=== PATIENT | male | born 1955 | race Caucasian/White ===

== ENCOUNTER 2021-01-27 12:42 | Emergency (ER) | payer MEDICARE ==
[~2021-01-27] VITALS: Ht 193 cm; Wt 95.3 kg
[~2021-01-27 12:42] MED LIST: ASP81TEC PO; ASPI-1238 PO; CLN.1T PO; CYAN10007 PO; DIGO0.25 PO; DIGO250T PO; DILT-27 PO; DILT300C PO; DOCU100T7 PO; DOXY-233 PO; ESCI-2 PO; FOLI1TAB33 PO; FURO20TA4 PO; HYDR-3454 PO; HYDR50TA76 PO; IBUP-2185 PO; INSU100I14 SQ; INSU100I5 SQ; LORA-404 PO; MAGN400T8 PO; METF-380 PO; METF-397 PO; MTP100TCR PO; MULT-1136 PO; OLAN10TA3 PO; PRV20T PO; QTP200T PO; RANI150T66 PO; RIVA20TA PO; THIA100T80 PO; TR1C15 TP; TRZ50T PO; WRF5T PO
--- NOTE | 2021-01-27 13:11 | Diagnostic Imaging Report ---
EXAMINATION: Portable erect AP chest at 1:02 p.m. INDICATION: Chest pain. The heart is mildly enlarged and the heart does seem somewhat more prominent than noted on the prior exam of 11/29/2020. However there is still no evidence for failure, pneumonia or for a significant pleural effusion. The mediastinum is not widened. The osseous structures are intact. IMPRESSION: There is mild cardiomegaly but there is no evidence for active disease. Dictated by: Dictated on workstation # [id number]
[2021-01-27] MEDS ORDERED: LORazepam INJ 2 MG/ML (ATIVAN) VIAL ONE (13:12)
[2021-01-27] MEDS ORDERED: LORazepam INJ 2 MG/ML (ATIVAN) VIAL IVP ONE ×2 (13:15→14:30)
[2021-01-27 13:26] LABS: BASOPHILS # (AUTO) 0.1 10^3/uL (0.0-0.1); BASOPHILS % (AUTO) 1 % (0-10); EOSINOPHILS # (AUTO) 0.1 10^3/uL (0.0-0.3); EOSINOPHILS % (AUTO) 1 % (0-10); HEMATOCRIT 38 % (40-54); HEMOGLOBIN 13.5 g/dL (13.3-17.7); LYMPHOCYTES # (AUTO) 0.9 10^3/uL (1.0-4.0); LYMPHOCYTES % (AUTO) 11 % (12-44); MEAN CORPUSCULAR HEMOGLOBIN 32 pg (25-34); MEAN CORPUSCULAR HGB CONC 35 g/dL (32-36); MEAN CORPUSCULAR VOLUME 90 fL (80-99); MEAN PLATELET VOLUME 9.3 fL (9.0-12.2); MONOCYTES # (AUTO) 0.6 10^3/uL (0.0-1.0); MONOCYTES % (AUTO) 7 % (0-12); NEUTROPHILS # (AUTO) 6.6 10^3/uL (1.8-7.8); NEUTROPHILS % (AUTO) 80 % (42-75); PLATELET COUNT 179 10^3/uL (130-400); WHITE BLOOD COUNT 8.2 10^3/uL (4.3-11.0)
[2021-01-27 13:27] LABS: ALBUMIN 4.5 GM/DL (3.2-4.5)
[2021-01-27 13:28] LABS: CHLORIDE 95 MMOL/L (98-107); POTASSIUM 4.7 MMOL/L (3.6-5.0); SODIUM 130 MMOL/L (135-145)
[2021-01-27 13:29] LABS: CALCIUM 9.5 MG/DL (8.5-10.1)
[2021-01-27 13:30] LABS: GLUCOSE 151 MG/DL (70-105); TOTAL PROTEIN 7.9 GM/DL (6.4-8.2)
[2021-01-27 13:31] LABS: CARBON DIOXIDE 19 MMOL/L (21-32)
[2021-01-27 13:32] LABS: BILIRUBIN,TOTAL 1.2 MG/DL (0.1-1.0)
[2021-01-27 13:34] LABS: ALKALINE PHOSPHATASE 48 U/L (40-136); CREATININE SERUM 1.02 MG/DL (0.60-1.30); GFR ESTIMATED > 60
[2021-01-27 13:35] LABS: BUN/CREATININE RATIO 8
[2021-01-27 13:37] LABS: ALANINE AMINOTRANSFERASE 20 U/L (0-55)
[2021-01-27] MEDS ORDERED: RT-ALBUTEROL INHALER HFA (VENTOLIN HFA) 18 GM IH ONE (14:26)
[2021-01-27] MEDS ORDERED: LORA-404 PO (15:01)
--- NOTE | 2021-01-27 15:01 | ED General ---
General Chief Complaint: Cardiac/General Problems Stated Complaint: ELEV BP/SOB Nursing Triage Note: PT ARRIVED BY PRIVATE VEHICLE WITH CHIEF COMPLAINT OF HYPERTENSION AND SOB. PT WAS ALERT, ORIENTED X 4 AND AMBULATORY. PT AMBULATED TO ROOM 9. PT STATED BP WAS CHECKED 3 HOURS AGO AND WAS ELEVATED. HE TAKES BP MEDICATION AND TOOK IT, AND IT DID NOT HELP. SOB STARTED LAST NIGHT. PT DENIES COUGH. PT HAS HAD BOTH MODERNA COVID VACCINES. IV WAS STARTED WITH BLOOD DRAW, COVID SWAB, VITAL SIGNS HEART MONITOR AND EKG. REPORT GIVEN TO PROVIDER. Source of Information: Patient Exam Limitations: No Limitations History of Present Illness Date Seen by Provider: Jan 27, 2021 Time Seen by Provider: 12:54 Initial Comments This 66-year-old gentleman presents to the emergency room with complaints of shortness of breath and hypertension. He is accustomed to drinking a daily but has not had any alcohol today. He does not have known respiratory problems but he appears to have decreased air movement and prolonged expiratory phase. He denies any fever. He has been vaccinated for COVID-19. He has poor eye contact and appears a bit anxious. He has upper extremity tremors. He has history of A. fib and is anticoagulated. Allergies and Home Medications Allergies Coded Allergies: No Known Drug Allergies (Unverified , 04/20/12) Home Medications Aspirin 81 Mg Tablet.dr, 81 MG PO DAILY Prescribed by: CAIO BOLDEN on 12/01/20 1211 Clonidine HCl 0.1 Mg Tablet, 0.1 MG PO HS PRN for SLEEP Prescribed by: CAIO BOLDEN on 12/01/20 1211 Diltiazem HCl 120 Mg Cap.er.24h, 120 MG PO DAILY LAST FILLED 07-15-2020 #90 Prescribed by: CAIO BOLDEN on 12/01/20 1211 Escitalopram Oxalate 10 Mg Tablet, 20 MG PO HS TAKES 2 (10MG) TABS Prescribed by: CAIO BOLDEN on 12/01/20 1211 Folic Acid 1 Mg Tablet, 1 MG PO DAILY Prescribed by: CAIO BOLDEN on 12/01/20 1211 Furosemide 20 Mg Tablet, 20 MG PO DAILY PRN for FLUID RETENTION Prescribed by: CAIO BOLDEN on 12/01/20 1211 Hydroxyzine HCl 50 Mg Tablet, 50 MG PO BID PRN for ANXIETY Prescribed by: CAIO BOLDEN on 12/01/20 1211 Ibuprofen 200 Mg Capsule, 400 MG PO Q8H PRN for PAIN-MILD (1-4), (Reported) Lorazepam 0.5 Mg Tablet, 0.5 MG PO TID PRN for ANXIETY Prescribed by: CAIO BOLDEN on 12/01/20 1211 Lorazepam 0.5 Mg Tablet, 0.5 MG PO TID PRN for AGITATION For withdrawal symptoms Prescribed by: JOSE IBARRA on 01/27/21 1501 Magnesium Oxide 400 Mg Tablet, 400 MG PO BID Prescribed by: CAIO BOLDEN on 12/01/20 1211 Metformin HCl 500 Mg Tablet, 500 MG PO BID LAST FILLED 08-12-2020 #180/90 DAY SUPPLY Prescribed by: CAIO BOLDEN on 12/01/20 1211 Metoprolol Succinate 100 Mg Tab.er.24h, 100 MG PO DAILY LAST FILLED 07-15-2020 #90/90 DAY SUPPLY Prescribed by: CAIO BOLDEN on 12/01/20 1211 Multivitamin 1 Each Tablet, 1 EACH PO DAILY Prescribed by: CAIO BOLDEN on 12/01/20 1211 Olanzapine 10 Mg Tablet, 10 MG PO HS Prescribed by: CAIO BOLDEN on 12/01/20 1211 Rivaroxaban 20 Mg Tablet, 20 MG PO DAILY 340 B Program Prescribed by: EMILE SMITH on 12/01/20 0816 Thiamine HCl 100 Mg Tablet, 100 MG PO DAILY@0700 Prescribed by: CAIO BOLDEN on 12/01/20 1211 Trazodone HCl 50 Mg Tablet, 50 MG PO HS Prescribed by: CAIO BOLDEN on 12/01/20 1211 Triamcinolone Acet 15 Gm Cr, 15 GM TP BID Prescribed by: CAIO BOLDEN on 12/01/20 1215 Patient Home Medication List Home Medication List Reviewed: Yes Review of Systems Review of Systems Constitutional: no symptoms reported EENTM: no symptoms reported Respiratory: see HPI Cardiovascular: see HPI Gastrointestinal: no symptoms reported Genitourinary: no symptoms reported Musculoskeletal: no symptoms reported Skin: no symptoms reported Psychiatric/Neurological: See HPI Hematologic/Lymphatic: No Symptoms Reported Immunological/Allergic: no symptoms reported Past Suwtywa-Wlhduv-Qcumls Hx Patient Social History Tobacco Use?: No Use of E-Cig and/or Vaping dev: No Substance use?: No Alcohol Use?: Yes Alcohol type: Beer Alcohol Frequency: Daily Pt feels they are or have been: No Past Medical History Surgeries: Yes Gallbladder Respiratory: No Cardiac: Yes (History CHF) Atrial Fibrillation, Hypertension Neurological: No Reproductive Disorders: No Genitourinary: No Gastrointestinal: No Musculoskeletal: No Endocrine: Yes Diabetes, Non-Insulin dep HEENT: No Cancer: No Did You Recieve Any Treatments: No Psychosocial: Yes Anxiety, Bipolar, Depression Integumentary: No Physical Exam Vital Signs Vital Signs - First Documented 01/27/21 12:50 Temp 37.2 Pulse 82 Resp 12 B/P (MAP) 182/136 (151) Pulse Ox 97 O2 Delivery Room Air Capillary Refill : Less Than 3 Seconds Height, Weight, BMI Height: '" Weight: lbs. oz. 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 Norm as Tested, Other (Upper extremity tremors, poor eye contact, perhaps mildly anxious) Skin: Normal Color, Warm/Dry Progress/Results/Core Measures Suspected Sepsis SIRS Temperature: Pulse: 82 Respiratory Rate: 12 Laboratory Tests 01/27/21 13:00: White Blood Count 8.2 Blood Pressure 182 /136 Mean: 151 Laboratory Tests 01/27/21 13:00: Creatinine 1.02, Platelet Count 179, Total Bilirubin 1.2H Results/Orders Lab Results Laboratory Tests Test 01/27/21 13:00 Range/Units White Blood Count 8.2 4.3-11.0 10^3/uL Red Blood Count 4.27 L 4.30-5.52 10^6/uL Hemoglobin 13.5 13.3-17.7 g/dL Hematocrit 38 L 40-54 % Mean Corpuscular Volume 90 80-99 fL Mean Corpuscular Hemoglobin 32 25-34 pg Mean Corpuscular Hemoglobin Concent 35 32-36 g/dL Red Cell Distribution Width 12.6 10.0-14.5 % Platelet Count 179 130-400 10^3/uL Mean Platelet Volume 9.3 9.0-12.2 fL Immature Granulocyte % (Auto) 1 % Neutrophils (%) (Auto) 80 H 42-75 % Lymphocytes (%) (Auto) 11 L 12-44 % Monocytes (%) (Auto) 7 0-12 % Eosinophils (%) (Auto) 1 0-10 % Basophils (%) (Auto) 1 0-10 % Neutrophils # (Auto) 6.6 1.8-7.8 10^3/uL Lymphocytes # (Auto) 0.9 L 1.0-4.0 10^3/uL Monocytes # (Auto) 0.6 0.0-1.0 10^3/uL Eosinophils # (Auto) 0.1 0.0-0.3 10^3/uL Basophils # (Auto) 0.1 0.0-0.1 10^3/uL Immature Granulocyte # (Auto) 0.1 0.0-0.1 10^3/uL Sodium Level 130 L 135-145 MMOL/L Potassium Level 4.7 3.6-5.0 MMOL/L Chloride Level 95 L 98-107 MMOL/L Carbon Dioxide Level 19 L 21-32 MMOL/L Anion Gap 16 H 5-14 MMOL/L Blood Urea Nitrogen 8 7-18 MG/DL Creatinine 1.02 0.60-1.30 MG/DL Estimat Glomerular Filtration Rate > 60 BUN/Creatinine Ratio 8 Glucose Level 151 H 70-105 MG/DL Calcium Level 9.5 8.5-10.1 MG/DL Corrected Calcium 9.1 8.5-10.1 MG/DL Total Bilirubin 1.2 H 0.1-1.0 MG/DL Aspartate Amino Transf (AST/SGOT) 36 H 5-34 U/L Alanine Aminotransferase (ALT/SGPT) 20 0-55 U/L Alkaline Phosphatase 48 40-136 U/L Troponin I < 0.028 <0.028 NG/ML C-Reactive Protein High Sensitivity 0.43 0.00-0.50 MG/DL B-Type Natriuretic Peptide 472.1 H <100.0 PG/ML Total Protein 7.9 6.4-8.2 GM/DL Albumin 4.5 3.2-4.5 GM/DL Influenza Type A (RT-PCR) Not Detected Not Detecte Influenza Type B (RT-PCR) Not Detected Not Detecte SARS-CoV-2 RNA (RT-PCR) Not Detected Not Detecte My Orders Orders - JOSE ORELLANA MD Lorazepam Injection (Ativan Injection) (01/27/21 13:15) Lorazepam Injection (Ativan Injection) (01/27/21 13:12) BNP (01/27/21 13:13) Cbc With Automated Diff (01/27/21 13:13) Comprehensive Metabolic Panel (01/27/21 13:13) Hs C Reactive Protein (01/27/21 13:13) Troponin I (01/27/21 13:13) Ed Iv/Invasive Line Start (01/27/21 13:13) Ekg Tracing (01/27/21 13:13) Monitor-Rhythm Ecg Trace Only (01/27/21 13:13) Covid 19 Inhouse Test (01/27/21 13:13) Influenza A And B By Pcr (01/27/21 13:13) Albuterol Inhaler (Ventolin Hfa) (01/27/21 18:00) Lorazepam Injection (Ativan Injection) (01/27/21 14:30) Albuterol Inhaler (Ventolin Hfa) (01/27/21 14:26) Medications Given in ED Vital Signs/I&O 01/27/21 01/27/21 12:50 15:23 Temp 37.2 Pulse 82 90 Resp 12 16 B/P (MAP) 182/136 (151) 158/113 Pulse Ox 97 97 O2 Delivery Room Air Room Air Capillary Refill : Less Than 3 Seconds Blood Pressure Mean: 151 Progress Note : Progress Note Work-up revealed no pathology that required immediate intervention. Symptoms improved with Ativan and inhaler. He does not intend to resume drinking alcohol when he returns home. A small quantity of Ativan was therefore prescribed to h elp him with withdrawal symptoms. See discharge instructions. ECG Initial ECG Impression Date: Jan 27, 2021 Initial ECG Impression Time: 13:13 Initial ECG Rate: 87 Initial ECG Rhythm: A Fib/Flutter Initial ECG Impression: Atrial Fibrillation w/RVR Comment Atrial fibrillation with no diagnostic ST elevation or depression. Rate controlled. No abnormal intervals. Diagnostic Imaging Diagonstic Imaging: Xray Plain Films/CT/US/NM/MRI: chest Comments NAME: JOCE MADSEN [facility] REC#: [id number] PT STATUS: REG ER : 1955 PHYSICIAN: MAGGIE AGUILAR APRN ADMIT DATE: 01/27/21/ER Signed Date of Exam:01/27/21 CHEST 1 VIEW, AP/PA ONLY EXAMINATION: Portable erect AP chest at 1:02 p.m. INDICATION: Chest pain. The heart is mildly enlarged and the heart does seem somewhat more prominent than noted on the prior exam of 11/29/2020. However there is still no evidence for failure, pneumonia or for a significant pleural effusion. The mediastinum is not widened. The osseous structures are intact. IMPRESSION: There is mild cardiomegaly but there is no evidence for active disease. Dictated by: Dictated on workstation # [id number] Dict: 01/27/21 1307 Trans: 01/27/21 1323 [facility] [id number] Interpreted by: JUNO RAO MD Electronically signed by: JUNO RAO MD 01/27/21 1323 Departure Impression Primary Impression: Alcohol withdrawal Qualified Codes: F10.239 - Alcohol dependence with withdrawal, unspecified Additional Impression: Bronchoconstriction Disposition: 01 HOME, SELF-CARE Condition: Improved Departure-Patient Inst. Decision time for Depature: 14:58 Referrals: NUSRAT NAVARRO MD (PCP/Family) Primary Care Physician Patient Instructions: Alcohol Withdrawal, BRONCHOSPASM-ADULT Add. Discharge Instructions: Do not abruptly stop alcohol consumption as this may cause life-threatening withdrawal symptoms or seizures. Either taper off of alcohol slowly or control symptoms with a medication such as Ativan (lorazepam). Use your inhaler up to 2 puffs every 4 hours as needed for wheezing or shortness of breath. Avoid inhaled irritants such as cigar smoke. Follow-up with your primary care provider soon as possible. Return to the emergency room if you have worsening symptoms. Call with questions or concerns. All discharge instructions reviewed with patient and/or family. Voiced understanding. Scripts Lorazepam (Ativan) 0.5 Mg Tablet 0.5 MG PO TID PRN for AGITATION, #10 TAB For withdrawal symptoms Prov: JOSE ORELLANA MD 01/27/21 Copy Copies To 1: NUSRAT NAVARRO MD, JOSHUA T MD Jan 27, 2021 15:01
[2021-01-27 15:23] VITALS: BP 158/113
[2021-01-27] MEDS ORDERED: RT-ALBUTEROL INHALER HFA (VENTOLIN HFA) 18 GM IH SCH (18:00)
== END 2021-01-27 15:23 | disposition home or self-care (01) ==
LOC: EDUNIT# 12:42 → ER 12:43
DX: F10.239 Alcohol dependence with withdrawal, unspecified (principal); J98.09 Other diseases of bronchus, not elsewhere classified; I11.0 Hypertensive heart disease with heart failure; I50.9 Heart failure, unspecified; I48.91 Unspecified atrial fibrillation; F41.9 Anxiety disorder, unspecified; E11.9 Type 2 diabetes mellitus without complications; F31.9 Bipolar disorder, unspecified; Z20.822 Contact with and (suspected) exposure to COVID-19; Z79.01 Long term (current) use of anticoagulants; Z79.82 Long term (current) use of aspirin; Z79.84 Long term (current) use of oral hypoglycemic drugs; Z79.899 Other long term (current) drug therapy
CPT/HCPCS: 36415; 71045; 80053; 83880; 84484; 85025; 86141; 87636; 93005; 93041

== ENCOUNTER 2021-04-05 23:13 | Emergency (ER) | payer MEDICARE ==
[~2021-04-05] VITALS: Ht 193 cm; Wt 99.0 kg
--- NOTE | 2021-04-05 23:45 | ED Fall/Injury ---
General Chief Complaint: Trauma EMS/Air Arrival Activat Stated Complaint: FALL,HEAD LAC Nursing Triage Note: Pt arrival to ER via EMS after fall at home. Pt states that he stood up after waiting too long after taking his medication and got dizzy. Pt states that he knelt to his knees then fell to the side striking right side of head on floor. Pt denies loss of consciousness. PT states that he gets dizzy sometimes after waiting too long after taking night time meds. Pt states that he takes xarelto for his Atrial Fib. Pt denies other complaints. Pain at a 1/10. Pt is alert and oriented x4. Source: patient Exam Limitations: no limitations History of Present Illness Date Seen by Provider: Apr 05, 2021 Time Seen by Provider: 23:21 Initial Comments Patient presents ER by EMS from home with chief complaint that he had a fall after standing up and going to the bathroom. She has gets dizzy sometimes after taking his medications for atrial fibrillation. He is on Xarelto. Dr. Hazel is his PCP. No nausea vomiting diarrhea. Small head lack to the right side of his head. It is hemostatic by time EMS arrived. Allergies and Home Medications Allergies Coded Allergies: No Known Drug Allergies (Unverified , 04/20/12) Patient Home Medication List Home Medication List Reviewed: Yes Aspirin (Aspirin EC) 81 Mg Tablet.dr, 81 MG PO DAILY Prescribed by: CAIO BOLDEN on 12/01/20 121 Clonidine HCl (Clonidine HCl) 0.1 Mg Tablet, 0.1 MG PO HS PRN for SLEEP Prescribed by: CAIO BOLDEN on 12/01/20 1211 Diltiazem HCl (Diltiazem 24Hr ER) 120 Mg Cap.er.24h, 120 MG PO DAILY Prescribed by: CAIO BOLDEN on 12/01/20 1211 Escitalopram Oxalate (Escitalopram Oxalate) 10 Mg Tablet, 20 MG PO HS Prescribed by: CAIO BOLDEN on 12/01/20 1211 Folic Acid (Folic Acid) 1 Mg Tablet, 1 MG PO DAILY Prescribed by: CAIO BOLDEN on 12/01/20 121 Furosemide (Furosemide) 20 Mg Tablet, 20 MG PO DAILY PRN for FLUID RETENTION Prescribed by: CAIO BOLDEN on 12/01/20 1211 Hydroxyzine HCl (Hydroxyzine HCl) 50 Mg Tablet, 50 MG PO BID PRN for ANXIETY Prescribed by: CAIO BOLDEN on 12/01/20 121 Ibuprofen (Ibuprofen) 200 Mg Capsule, 400 MG PO Q8H PRN for PAIN-MILD (1-4), (Reported) Entered as Reported by: NICOLE BLEDSOE on 11/30/20 0910 Lorazepam (Ativan) 0.5 Mg Tablet, 0.5 MG PO TID PRN for ANXIETY Prescribed by: CAIO BOLDEN on 12/01/20 121 Lorazepam (Ativan) 0.5 Mg Tablet, 0.5 MG PO TID PRN for AGITATION Prescribed by: JOSE IBARRA on 01/27/21 1501 Magnesium Oxide (Magnesium Oxide) 400 Mg Tablet, 400 MG PO BID Prescribed by: CAIO BOLDEN on 12/01/20 121 Metformin HCl (Metformin HCl) 500 Mg Tablet, 500 MG PO BID Prescribed by: CAIO BOLDEN on 12/01/20 121 Metoprolol Succinate (Metoprolol Succinate) 100 Mg Tab.er.24h, 100 MG PO DAILY Prescribed by: CAIO BOLDEN on 12/01/20 121 Multivitamin (Multivitamin) 1 Each Tablet, 1 EACH PO DAILY Prescribed by: CAIO BOLDEN on 12/01/20 121 Olanzapine (Zyprexa) 10 Mg Tablet, 10 MG PO HS Prescribed by: CAIO BOLDEN on 12/01/20 121 Rivaroxaban (Xarelto) 20 Mg Tablet, 20 MG PO DAILY Prescribed by: EMILE SMITH on 12/01/20 0816 Thiamine HCl (Vitamin B-1) 100 Mg Tablet, 100 MG PO DAILY@0700 Prescribed by: CAIO BOLDEN on 12/01/20 121 Trazodone HCl (Trazodone HCl) 50 Mg Tablet, 50 MG PO HS Prescribed by: CAIO BOLDEN on 12/01/20 121 Triamcinolone Acet (Triamcinolone Acetonide 0.1% Cream) 15 Gm Cr, 15 GM TP BID Prescribed by: CAIO BODLEN on 12/01/20 1215 Review of Systems Review of Systems Constitutional: No chills, No diaphoresis Eyes: Denies Blindness, Denies Blurred Vision Cardiovascular: No chest pain, No palpitations Gastrointestinal: No abdominal pain, No nausea, No vomiting Genitourinary: No discharge, No dysuria Musculoskeletal: No back pain, No joint pain All Other Systems Reviewed Negative Unless Noted: Yes Past Zidvtwi-Rqnvhh-Oopnoe Hx Patient Social History Tobacco Use?: No Use of E-Cig and/or Vaping dev: No Substance use?: No Alcohol Use?: Yes Alcohol type: Beer Alcohol Frequency: Daily Pt feels they are or have been: No Immunizations Up To Date Influenza Vaccine Up-to-Date: No; Not Current Second COVID19 Vaccination Giovanny: 10/15 COVID19 Vaccine Vascular Nurse: Sandra Past Medical History Surgeries: Yes Gallbladder Respiratory: No Cardiac: Yes (History CHF) Atrial Fibrillation, Hypertension Neurological: No Reproductive Disorders: No Genitourinary: No Gastrointestinal: No Musculoskeletal: No Endocrine: Yes Diabetes, Non-Insulin dep HEENT: No Cancer: No Did You Recieve Any Treatments: No Psychosocial: Yes Anxiety, Bipolar, Depression Integumentary: No Physical Exam Vital Signs Vital Signs - First Documented 04/05/21 23:14 Temp 35.9 Pulse 61 Resp 18 B/P (MAP) 110/81 (91) Pulse Ox 97 O2 Delivery Room Air Capillary Refill : Less Than 3 Seconds Height, Weight, BMI Height: '" Weight: lbs. oz. kg; 26.00 BMI Method: General Appearance: WD/WN, no apparent distress HEENT: PERRL/EOMI, normal ENT inspection, pharynx normal Neck: full range of motion, supple, normal inspection Cardiovascular: normal peripheral pulses, regular rate, rhythm Respiratory: lungs clear, normal breath sounds, no respiratory distress, no accessory muscle use Peripheral Pulses: 2+ Radial Pulses (R), 2+ Radial Pulses (L) Gastrointestinal: normal bowel sounds, non tender, soft Extremities: normal range of motion, normal capillary refill Neurologic/Psychiatric: alert, normal mood/affect, oriented x 3 Skin: normal color, warm/dry, other (1-1/2 cm lambda shaped laceration oozing sanguinous discharge out of the right pentecostalism) Weston Coma Score Best Eye Response: (4) Open Spontaneously Best Verbal Response: (5) Oriented Best Motor Response: (6) Obeys Commands Weston Total: 15 Procedures/Interventions Wound Location: Scalp Other Wound Location right pentecostalism Wound Length (cm): 1.2 Wound's Depth, Shape: linear, sub Q Wound Explored: no foreign body removed Irrigated w/ Saline (ccs): 200 Betadine Prep?: No Anesthesia: 1% Lidocaine Volume Anesthetic (ccs): 1 Wound Debrided: minimal Staple Repair: Stapler 35W Number of Sutures: 1 Sterile Dressing Applied?: Yes Progress/Results/Core Measures Results/Orders Lab Results Laboratory Tests Test 04/05/21 23:43 Range/Units White Blood Count 5.3 4.3-11.0 10^3/uL Red Blood Count 4.31 4.30-5.52 10^6/uL Hemoglobin 13.3 13.3-17.7 g/dL Hematocrit 40 40-54 % Mean Corpuscular Volume 92 80-99 fL Mean Corpuscular Hemoglobin 31 25-34 pg Mean Corpuscular Hemoglobin Concent 33 32-36 g/dL Red Cell Distribution Width 12.3 10.0-14.5 % Platelet Count 160 130-400 10^3/uL Mean Platelet Volume 9.3 9.0-12.2 fL Immature Granulocyte % (Auto) 1 % Neutrophils (%) (Auto) 49 42-75 % Lymphocytes (%) (Auto) 34 12-44 % Monocytes (%) (Auto) 11 0-12 % Eosinophils (%) (Auto) 4 0-10 % Basophils (%) (Auto) 1 0-10 % Neutrophils # (Auto) 2.6 1.8-7.8 10^3/uL Lymphocytes # (Auto) 1.8 1.0-4.0 10^3/uL Monocytes # (Auto) 0.6 0.0-1.0 10^3/uL Eosinophils # (Auto) 0.2 0.0-0.3 10^3/uL Basophils # (Auto) 0.0 0.0-0.1 10^3/uL Immature Granulocyte # (Auto) 0.0 0.0-0.1 10^3/uL Potassium Level 4.2 3.6-5.0 MMOL/L Chloride Level 95 L 98-107 MMOL/L Carbon Dioxide Level 18 L 21-32 MMOL/L Anion Gap 12 5-14 MMOL/L Blood Urea Nitrogen 7 7-18 MG/DL Creatinine 0.98 0.60-1.30 MG/DL Estimat Glomerular Filtration Rate 76 BUN/Creatinine Ratio 7 Glucose Level 139 H 70-105 MG/DL Calcium Level 9.1 8.5-10.1 MG/DL Corrected Calcium 9.1 8.5-10.1 MG/DL Total Bilirubin 0.7 0.1-1.0 MG/DL Aspartate Amino Transf (AST/SGOT) 22 5-34 U/L Alanine Aminotransferase (ALT/SGPT) 16 0-55 U/L Alkaline Phosphatase 39 L 40-136 U/L Total Protein 7.2 6.4-8.2 GM/DL Albumin 4.0 3.2-4.5 GM/DL My Orders Orders - PROSPER PERDOMO Ct Head/Cervical Spine Wo (04/05/21 23:24) Comprehensive Metabolic Panel (04/05/21 23:24) Cbc With Automated Diff (04/05/21 23:41) Vital Signs/I&O 04/05/21 23:14 Temp 35.9 Pulse 61 Resp 18 B/P (MAP) 110/81 (91) Pulse Ox 97 O2 Delivery Room Air Blood Pressure Mean: 91 Progress Progress Note : Time: 23:[address] of the head and C-spine. Will clean up the laceration. He is up-to-date on his tetanus vaccine. Level [address] Harry is present and agrees with plan and disposition. Diagnostic Imaging Diagonstic Imaging: CT Plain Films/CT/US/NM/MRI: c-spine, head Comments [facility] [place] NAME: JOCE MADSEN [facility] REC#: [id number] PT STATUS: REG ER : 1955 PHYSICIAN: PROSPER PERDOMO MD ADMIT DATE: 04/05/21/ER Signed Date of Exam:04/05/21 CT HEAD/CERVICAL SPINE WO PROCEDURE: CT head and CT cervical spine without contrast. TECHNIQUE: Multiple contiguous axial images were obtained through the brain and cervical spine without the use of intravenous contrast. Sagittal and coronal reformations through the cervical spine were then performed. Auto Exposure Controls were utilized during the CT exam to meet ALARA standards for radiation dose reduction. INDICATION: Fall, laceration to right side of head. COMPARISON: None available. FINDINGS: Head: No hyperdense hemorrhage or space-occupying mass. No hydrocephalus or midline shift. No evidence of territorial infarct. Basilar cisterns are patent. Right frontal scalp laceration. No skull fracture. The paranasal sinuses and mastoid air cells are clear. Cervical spine: No acute fracture or traumatic malalignment. No high-grade spinal canal narrowing. Airway is patent. No cervical lymphadenopathy. Visualized thyroid is normal. IMPRESSION: 1. No acute intracranial process or skull fracture. 2. No acute fracture or traumatic malalignment of the cervical spine. Dictated by: Dictated on workstation # [id number] Dict: 04/05/[id number] Trans: 04/05/212348 [facility] [id number] Interpreted by: CECIL AUSTIN MD Electronically signed by: CECIL AUSTIN MD 04/05/212348 Reviewed: Reviewed by Me Departure Impression Primary Impression: Fall Qualified Codes: W19.XXXA - Unspecified fall, initial encounter Additional Impression: Laceration of scalp Qualified Codes: S01.01XA - Laceration without foreign body of scalp, initial encounter Disposition: HOME, SELF-CARE Condition: Stable Departure-Patient Inst. Decision time for Depature: 00:11 Referrals: NUSRAT NAVARRO MD (PCP/Family) Primary Care Physician Patient Instructions: Preventing Falls ED, Laceration Repair With Royal (DC) Add. Discharge Instructions: Return to the ER in 7 days to have the gala removed no additional charge. Keep the wound clean with regular soap and water. Return sooner if you are having weakness, numbness, slurred speech or confusion. All discharge instructions reviewed with patient and/or family. Voiced understanding. PROSPER PERDOMO Apr 05, 2021 23:45
--- NOTE | 2021-04-05 23:51 | Diagnostic Imaging Report ---
PROCEDURE: CT head and CT cervical spine without contrast. TECHNIQUE: Multiple contiguous axial images were obtained through the brain and cervical spine without the use of intravenous contrast. Sagittal and coronal reformations through the cervical spine were then performed. Auto Exposure Controls were utilized during the CT exam to meet ALARA standards for radiation dose reduction. INDICATION: Fall, laceration to right side of head. COMPARISON: None available. FINDINGS: Head: No hyperdense hemorrhage or space-occupying mass. No hydrocephalus or midline shift. No evidence of territorial infarct. Basilar cisterns are patent. Right frontal scalp laceration. No skull fracture. The paranasal sinuses and mastoid air cells are clear. Cervical spine: No acute fracture or traumatic malalignment. No high-grade spinal canal narrowing. Airway is patent. No cervical lymphadenopathy. Visualized thyroid is normal. IMPRESSION: 1. No acute intracranial process or skull fracture. 2. No acute fracture or traumatic malalignment of the cervical spine. Dictated by: Dictated on workstation # [id number]
[2021-04-05 23:58] LABS: BASOPHILS % (AUTO) 1 % (0-10); EOSINOPHILS # (AUTO) 0.2 10^3/uL (0.0-0.3); EOSINOPHILS % (AUTO) 4 % (0-10); HEMATOCRIT 40 % (40-54); HEMOGLOBIN 13.3 g/dL (13.3-17.7); LYMPHOCYTES # (AUTO) 1.8 10^3/uL (1.0-4.0); LYMPHOCYTES % (AUTO) 34 % (12-44); MEAN CORPUSCULAR HEMOGLOBIN 31 pg (25-34); MEAN CORPUSCULAR HGB CONC 33 g/dL (32-36); MEAN CORPUSCULAR VOLUME 92 fL (80-99); MEAN PLATELET VOLUME 9.3 fL (9.0-12.2); MONOCYTES # (AUTO) 0.6 10^3/uL (0.0-1.0); MONOCYTES % (AUTO) 11 % (0-12); NEUTROPHILS # (AUTO) 2.6 10^3/uL (1.8-7.8); NEUTROPHILS % (AUTO) 49 % (42-75); PLATELET COUNT 160 10^3/uL (130-400); WHITE BLOOD COUNT 5.3 10^3/uL (4.3-11.0)
[2021-04-06] LABS: POTASSIUM 4.2 MMOL/L (3.6-5.0)
[2021-04-06 00:02] LABS: CALCIUM 9.1 MG/DL (8.5-10.1)
[2021-04-06 00:03] LABS: TOTAL PROTEIN 7.2 GM/DL (6.4-8.2)
[2021-04-06 00:05] LABS: BILIRUBIN,TOTAL 0.7 MG/DL (0.1-1.0)
[2021-04-06 00:06] LABS: CREATININE SERUM 0.98 MG/DL (0.60-1.30)
[2021-04-06 00:26] VITALS: BP 106/77
== END 2021-04-06 00:20 | disposition home or self-care (01) ==
LOC: EDUNIT# 23:13 → ER 23:15
DX: S01.01XA Laceration without foreign body of scalp, initial encounter (principal); I11.0 Hypertensive heart disease with heart failure; I50.9 Heart failure, unspecified; E11.9 Type 2 diabetes mellitus without complications; I48.91 Unspecified atrial fibrillation; F31.9 Bipolar disorder, unspecified; F41.9 Anxiety disorder, unspecified; Z79.84 Long term (current) use of oral hypoglycemic drugs; Z79.82 Long term (current) use of aspirin; Z79.01 Long term (current) use of anticoagulants; Z79.899 Other long term (current) drug therapy; W18.30XA Fall on same level, unspecified, initial encounter
CPT/HCPCS: 36415; 70450; 72125; 80053; 85025

== ENCOUNTER 2021-04-13 19:39 | Emergency (ER) | payer MEDICARE ==
[2021-04-13 19:44] VITALS: BP 135/95
== END 2021-04-13 19:47 | disposition home or self-care (01) ==
LOC: EDUNIT# 19:39 → ER 19:42
DX: Z48.02 Encounter for removal of sutures (principal)

== ENCOUNTER → 2021-04-16 | Outpatient (CLI) | payer MEDICARE ==
[2021-04-16 15:55] LABS: ALBUMIN 4.4 GM/DL (3.2-4.5)
[2021-04-16 15:56] LABS: CALCIUM 9.6 MG/DL (8.5-10.1)
[2021-04-16 15:58] LABS: TOTAL PROTEIN 7.7 GM/DL (6.4-8.2)
[2021-04-16 15:59] LABS: BILIRUBIN,TOTAL 1.4 MG/DL (0.1-1.0)
[2021-04-16 16:01] LABS: CREATININE SERUM 0.96 MG/DL (0.60-1.30)
== END ==
LOC: LAB 15:16
PROVIDERS: ATTEND Nurse Practitioner
DX: E87.1 Hypo-osmolality and hyponatremia (principal)
CPT/HCPCS: 36415; 80053; 83935

== ENCOUNTER 2021-05-28 05:50 | Outpatient (CLI) | payer MEDICARE ==
[~2021-05-28] VITALS: Ht 193 cm; Wt 95.4 kg
[~2021-05-28 05:50] MED LIST changes: -MAGN400T8 PO; +MGX400T PO
[2021-05-29] MEDS ORDERED: DILT120C85 PO (15:38)
[2021-05-29] MEDS ORDERED: MTP100TCR PO (15:38)
[2021-05-29] MEDS ORDERED: RIVA20TA PO (15:38)
[2021-05-29] MEDS ORDERED: METF-397 PO (15:38)
== END 2021-05-29 15:40 | disposition home or self-care (01) ==
LOC: PREOP 05:50
PROVIDERS: ATTEND Specialist
DX: Z01.818 Encounter for other preprocedural examination (principal)

== ENCOUNTER 2021-06-01 09:56 | Day surgery (SDC) | payer MEDICARE ==
[~2021-06-01] VITALS: Ht 193 cm; Wt 95.4 kg
[~2021-06-01 09:56] MED LIST changes: +DILT120C85 PO
[2021-06-01] MEDS ORDERED: MIDAZOLAM 2 MG/2 ML (VERSED) VIAL ONE (10:07)
[2021-06-01] MEDS ORDERED: MOXIFLOXACIN OPHTH SOLN 5 MG/ML 0.3 ML SYRINGE OP ONE (10:30)
[2021-06-01] MEDS ORDERED: POVIDONE (BETADINE) OPHTH SOLN 5% 30 ML OP ONE (10:30)
[2021-06-01] MEDS ORDERED: LIDOCAINE PF 1% 2 ML VIAL IR PRN (10:30)
[2021-06-01] MEDS ORDERED: TIMOLOL MALEATE 0.5% 5 ML (TIMOPTIC) BTL OU PRN (10:30)
[2021-06-01] MEDS: TETRACAINE 0.5% OPHTH SOLN 4 ML BTL (SINGLE DOSE ONLY) OU PRN ×4 (10:36→10:53)
[2021-06-01] MEDS: PHENYLEPHRINE 10% OPHTH (NEO-SYN) 5 ML BTL OU SCH ×3 (10:43→10:53)
[2021-06-01] MEDS: TROPICAMIDE 1% OPH SOLN (MYDRIACYL) 15 ML BTL OP SCH ×3 (10:43→10:53)
[2021-06-01 10:44] VITALS: BP 127/92
--- NOTE | 2021-06-01 11:12 | Ophthalmologist Pre-Op Note ---
Pre-Operative Progress Note H&P Reviewed The H&P was reviewed, patient examined and no changes noted. Date H&P Reviewed: Jun 01, 2021 Time H&P Reviewed: 11:11 Pre-Op Dx Cataract, Left Eye AMY BARAHONA MD Jun 01, 2021 11:12
--- NOTE | 2021-06-01 11:35 | Ophthalmology Operative Report ---
Cataract removal/placement IOL PREOPERATIVE DIAGNOSIS: Cataract Left Eye POSTOPERATIVE DIAGNOSIS: Cataract Left Eye PROCEDURE: Cataract removal and placement of posterior chamber implant, left eye SURGEON: Bacilio Barahona ANESTHESIA: Topical with sedation COMPLICATIONS: None ESTIMATED BLOOD LOSS: Minimal DESCRIPTION OF PROCEDURE: After proper informed consent was obtained, the patient, a 66 male, was taken to the Operating Room and the left eye was anesthetized with tetracaine. The left eye was then prepped and draped in the usual manner. A wire lid speculum was placed. A paracentesis was made at the left hand position. Preservative free lidocaine was injected into the anterior chamber followed by viscoelastic. A clear corneal incision was made in the temporal position. A capsulorrhexis was preformed and the central nuclear and cortical material were removed. The posterior capsule was polished and an Bhupendra 13.0 AU00T0 was placed into the capsular bag. The residual viscoelastic was aspirated and balanced saline solution was injected into the anterior chamber. Moxifloxacin was injected into the anterior chamber. The wound was checked and found to be water tight. The patient tolerated the procedure well without complications. BACILIO BARAHONA MD Jun 01, 2021 11:34
[2021-06-01 11:46] VITALS: BP 126/98
[2021-06-01] MEDS ORDERED: acetaZOLAMIDE ER 500 MG CAP (DIAMOX SEQUELS) PO ONE (12:00)
--- NOTE | 2021-06-01 12:28 | Anesthesia-General Post-Op ---
MAC Patient Condition Mental Status/LOC: Same as Preop Cardiovascular: Satisfactory Nausea/Vomiting: Absent Respiratory: Satisfactory Pain: Controlled Complications: Absent Post Op Complications Complications None Follow Up Care/Instructions Patient Instructions None needed. Anesthesiology Discharge Order Discharge Order Patient is doing well, no complaints, stable vital signs, no apparent adverse anesthesia problems. No complications reported per nursing. EMMETT LUCAS CRNA Jun 01, 2021 12:28
== END 2021-06-01 11:48 ==
LOC: SDC 09:56
PROVIDERS: ATTEND Specialist
DX: E11.36 Type 2 diabetes mellitus with diabetic cataract (principal); H25.12 Age-related nuclear cataract, left eye; Z79.899 Other long term (current) drug therapy; Z79.84 Long term (current) use of oral hypoglycemic drugs; Z79.01 Long term (current) use of anticoagulants; I10 Essential (primary) hypertension; F32.A Depression, unspecified; F41.9 Anxiety disorder, unspecified
CPT/HCPCS: 66984; 82947; V2632

== ENCOUNTER 2021-06-15 10:28 | Day surgery (SDC) | payer MEDICARE ==
[~2021-06-15] VITALS: Ht 193 cm; Wt 95.4 kg
[2021-06-15] MEDS ORDERED: POVIDONE (BETADINE) OPHTH SOLN 5% 30 ML OP ONE (10:45)
[2021-06-15] MEDS: TETRACAINE 0.5% OPHTH SOLN 4 ML BTL (SINGLE DOSE ONLY) OU PRN ×4 (10:45→11:02)
[2021-06-15] MEDS ORDERED: MOXIFLOXACIN OPHTH SOLN 5 MG/ML 0.3 ML SYRINGE OP ONE (10:45)
[2021-06-15] MEDS ORDERED: TIMOLOL MALEATE 0.5% 5 ML (TIMOPTIC) BTL OU PRN (10:45)
[2021-06-15] MEDS ORDERED: LIDOCAINE PF 1% 2 ML VIAL IR PRN (10:45)
[2021-06-15 10:50] VITALS: BP 143/108
[2021-06-15] MEDS: TROPICAMIDE 1% OPH SOLN (MYDRIACYL) 15 ML BTL OP SCH ×3 (10:52→11:02)
[2021-06-15] MEDS: PHENYLEPHRINE 10% OPHTH (NEO-SYN) 5 ML BTL OU SCH ×3 (10:52→11:02)
[2021-06-15] MEDS ORDERED: MIDAZOLAM 2 MG/2 ML (VERSED) VIAL ONE (11:32)
--- NOTE | 2021-06-15 11:42 | Ophthalmologist Pre-Op Note ---
Pre-Operative Progress Note H&P Reviewed The H&P was reviewed, patient examined and no changes noted. Date H&P Reviewed: Jun 15, 2021 Time H&P Reviewed: 11:41 Pre-Op Dx Cataract, Right Eye AMY BARAHONA MD Jun 15, 2021 11:42
[2021-06-15] MEDS ORDERED: acetaZOLAMIDE ER 500 MG CAP (DIAMOX SEQUELS) PO ONE (12:00)
--- NOTE | 2021-06-15 12:01 | Ophthalmology Operative Report ---
Cataract removal/placement IOL PREOPERATIVE DIAGNOSIS: Cataract Right Eye POSTOPERATIVE DIAGNOSIS: Cataract Right Eye PROCEDURE: Cataract removal and placement of posterior chamber implant, right eye SURGEON: Bacilio Barahona ANESTHESIA: Topical with sedation COMPLICATIONS: None ESTIMATED BLOOD LOSS: Minimal DESCRIPTION OF PROCEDURE: After proper informed consent was obtained, the patient, a 66 male, was taken to the Operating Room and the right eye was anesthetized with tetracaine. The right eye was then prepped and draped in the usual manner. A wire lid speculum was placed. A paracentesis was made at the left hand position. Preservative free lidocaine was injected into the anterior chamber followed by viscoelastic. A clear corneal incision was made in the temporal position. A capsulorrhexis was preformed and the central nuclear and cortical material were removed. The posterior capsule was polished and Bhupendra 13.5 AU00T0 IOL was placed into the capsular bag. The residual viscoelastic was aspirated and balanced saline solution was injected into the anterior chamber. Moxifloxacin was injected into the anterior chamber. The wound was checked and found to be water tight. The patient tolerated the procedure well without complications. BACILIO BARAHONA MD Jun 15, 2021 12:01
[2021-06-15 12:06] VITALS: BP 150/114
--- NOTE | 2021-06-15 14:16 | Anesthesia-General Post-Op ---
MAC Patient Condition Mental Status/LOC: Same as Preop Cardiovascular: Satisfactory Nausea/Vomiting: Absent Respiratory: Satisfactory Pain: Controlled Complications: Absent Post Op Complications Complications None Follow Up Care/Instructions Patient Instructions None needed. Anesthesiology Discharge Order Discharge Order Patient was seen after the procedure and he was doing well, no complaints, stable vital signs, no apparent adverse anesthesia problems. BHUPINDER GABRIEL DO Jun 15, 2021 14:16
== END 2021-06-15 12:07 | disposition home or self-care (01) ==
LOC: SDC 10:28
PROVIDERS: ATTEND Specialist
DX: E11.36 Type 2 diabetes mellitus with diabetic cataract (principal); H25.11 Age-related nuclear cataract, right eye; F32.A Depression, unspecified; I10 Essential (primary) hypertension; Z79.84 Long term (current) use of oral hypoglycemic drugs; Z79.899 Other long term (current) drug therapy; Z79.01 Long term (current) use of anticoagulants
CPT/HCPCS: 66984; V2632